=== PATIENT | female | born 1930 | race Hispanic/Latino ===

== ENCOUNTER 2017-01-28 14:22 | Inpatient (IN) | payer MEDICARE, OTHER ==
[2017-01-28] MEDS ORDERED: Sodium Chloride 0.9% 500 ML IV STA ×3 (14:59→17:41)
--- NOTE | 2017-01-28 15:10 | ED PDOC ---
HPI: Altered Mental Status Chief Complaint (Provider): Altered Mental Status History Per: Patient, Family (2 sons (one lives with her)) History/Exam Limitations: Other Onset/Duration Of Symptoms: Hrs Onset Of Symptoms: <4.5 Hours Current Symptoms Are (Timing): Better Description Of Symptoms: Not At Baseline Usual Baseline: Alert Oriented, Ambulatory Exacerbating Factor(s): Unknown Use Of Anticoag/Antiplatlets: Yes Decreased Ability To: Walk Severity: Moderate Additional History Per: Family Associated Symptoms: Confused Additional Complaint(s): Halie Alejandra is a pleasant 86 yo lady with PMHx of [place], DM, dyslipidemia presented to the ED via ambulance service. Her 2 sons were present to give detailed information. They notice around noon, she was shaking similar to having chills. 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 Calderón who instructed them to seek emergent medical attention. Per son: leading up to the event, she seemed to be "normal", she had breakfast, was ambulatory, no recent illness or travel to foreign countries. They shared that a few years ago, she had similar symptoms and found to be hypoglycemic. She was more responsive and able to deny: N/V/CP/JOLLEY/SOB. PCP: Dr. Bahman Brunner. Hvac Manager: Dr. 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 PSurgHx: none FamHx: Mother DM; Father: IDDM; esophageal CA; [place]; Son: prostate CA SocialHx: Lives with son; Denies: smoking, etoh, illicit drugs NKDA Meds: Levothyroxine, Amiodarone, Clopidogrel, Isosorbide monoNitrate, metoprolol , atorvastatin, pioglitazone <Hiren Pineda - Last Filed: 01/28/17 18:28> <Silvia Arenas - Last Filed: 02/01/17 15:10> Time Seen by Provider: 01/28/17 14:34 Chief Complaint (Nursing): Weakness/Neurological Deficit Supervising Attending Note - Supervising Attending Note The Documented history was done by the: Physician Calender Wind Up Helper, Attending Physician The documented physical exam was done by the: Physician Calender Wind Up Helper, Attending Physician - Attestation: I have personally seen and examined this patient.: Yes I have fully participated in the care of the patient.: Yes I have reviewed all pertinent clinical information: Yes <Silvia Arenas - Last Filed: 02/01/17 15:10> Past Medical History Vital Signs: Last Vital Signs Temp 104.2 F H 01/28/17 14:25 Pulse 80 01/28/17 14:25 Resp 16 01/28/17 14:25 BP 147/64 01/28/17 14:45 Pulse Ox 98 01/28/17 14:25 - Medical History PMH: Atrial Fibrillation, CAD, HTN, Hypercholesterolemia Denies: Chronic Kidney Disease - Family History Family History: States: Unknown Family Hx <Hiren Pineda - Last Filed: 01/28/17 18:28> Vital Signs: Last Vital Signs Temp 98.5 F 02/01/17 12:44 Pulse 55 L 02/01/17 12:44 Resp 18 02/01/17 12:44 BP 138/70 02/01/17 12:44 Pulse Ox 95 02/01/17 12:44 <Silvia Arenas - Last Filed: 02/01/17 15:10> - Home Medications Home Medications: Ambulatory Orders Medication Instructions Recorded Atorvastatin [Lipitor] 40 mg PO DAILY 02/09/16 Clopidogrel [Plavix] 75 mg PO DAILY 02/09/16 Isosorbide Mononitrate ER [Imdur 30 mg PO DAILY 02/09/16 ER] Metoprolol Tartrate [Lopressor] 12.5 mg PO Q12H 02/09/16 Pioglitazone [Actos] 15 mg PO DAILY 02/09/16 Amiodarone [Cordarone] 100 mg PO Q48H 01/28/17 Levothyroxine [Synthroid] 25 mcg PO DAILY 01/28/17 - Allergies Allergies/Adverse Reactions: Allergies Allergy/AdvReac Type Severity Reaction Status Date / Time No Known Allergies Allergy Verified 02/09/16 09:21 Review of Systems ROS Statement: Except As Marked, All Systems Reviewed And Found Negative Constitutional: Positive for: Chills Cardiovascular: Negative for: Chest Pain Respiratory: Negative for: Shortness of Breath Gastrointestinal: Negative for: Nausea, Vomiting, Abdominal Pain Neurological: Negative for: Headache <Hiren Pineda - Last Filed: 01/28/17 18:28> Physical Exam - Reviewed Vital Signs Reviewed: Yes - Physical Exam Appears: Positive for: No Acute Distress Skin: Positive for: Warm, Dry Eye Exam: Positive for: EOMI Cardiovascular/Chest: Positive for: Murmur (Systolic) Respiratory: Positive for: Normal Breath Sounds. Negative for: Wheezing Gastrointestinal/Abdominal: Positive for: Bowel Sounds, Soft. Negative for: Tenderness Neurologic/Psych: Positive for: Alert (Mini Mental Status Exam: 18/30 Mild Cognitive impairment. ) <Vasiliy Pinedaang Rubén Devyn Filed: 01/28/17 18:28> - Physical Exam Head Exam: Positive for: ATRAUMATIC, NORMOCEPHALIC ENT: Positive for: Other (tacky mucus membranes) Neck: Positive for: Painless ROM, Supple Respiratory: Negative for: Respiratory Distress Back: Positive for: Normal Inspection. Negative for: Decreased ROM Lymphatic: Negative for: Adenopathy Neurologic/Psych: Negative for: Motor/Sensory Deficits <Silvia Arenas Filed: 02/01/17 15:10> - Laboratory Results Result Diagrams: 01/28/17 15:38 01/28/17 15:38 - ECG O2 Sat by Pulse Oximetry: 98 <Vasiliy Pinedaang Rubén Devyn Filed: 01/28/17 18:28> - Laboratory Results Result Diagrams: 01/30/17 08:00 01/30/17 08:00 <Silvia Arenas Filed: 02/01/17 15:10> Disposition - Patient ED Disposition Is Patient to be Admitted: Yes Discussed With : Silvia Arenas Comment: Consulted Dr. Brunner (PCP) who recommeneded consulting Dr. Calderón ( Cardiology) and Dr. Augustin (ID); Agreed for emperic abx and tamiflu;. Admit to floor with repeat in culture, VBG and vitals - Disposition Disposition Time: 18:25 <Hiren Pineda Filed: 01/28/17 18:28> - Pt Status Changed To: Hospital Disposition Of: Inpatient - Admit Certification Admit to Inpatient:: After my assessment, the patient will require hospitalization for at least two midnights. This is because of the severity of symptoms shown, intensity of services needed, and/or the medical risk in this patient being treated as an outpatient. - POA Present On Arrival: None <Silvia Arenas - Last Filed: 02/01/17 15:10> - Clinical Impression Clinical Impression: Febrile, Acute weakness - Disposition Condition: FAIR
[2017-01-28 15:43] LABS: BASO % 0.3 % (0.0-2.0); EOS % 0.3 % (0.0-4.0); HEMATOCRIT 35.7 % (34.0-47.0); LYMPH # 0.2 K/uL (1.0-4.3); LYMPH % 2.7 % (20.0-40.0); MEAN CELL VOLUME 89.6 fl (81.0-99.0); MEAN CORPUSCULAR HEMOGLOBIN 29.8 pg (27.0-31.0); MEAN CORPUSCULAR HGB CONC 33.3 g/dL (33.0-37.0); MEAN PLATELET VOLUME 9.9 fl (7.2-11.7); MONO % 0.6 % (0.0-10.0); NEUT # 7.2 K/uL (1.8-7.0); NEUT % 96.1 % (50.0-75.0); PLATELET COUNT 154 K/uL (130-400); RED CELL DISTRIBUTION WIDTH 14.7 % (11.5-14.5); WHITE BLOOD COUNT 7.5 K/uL (4.8-10.8)
[2017-01-28 15:52] LABS: ALB/GLOB RATIO 1.1 (1.0-2.1); BILIRUBIN,TOTAL 0.7 mg/dl (0.2-1.3); CALCIUM 8.5 mg/dL (8.4-10.2); MAGNESIUM 2.2 MG/DL (1.6-2.3); PHOSPHOROUS 3.2 mg/dl (2.5-4.5); TOTAL PROTEIN 7.4 G/DL (6.3-8.2)
[2017-01-28 15:53] LABS: PARTIAL THROMBOPLASTIN TIME 32.1 Seconds (25.6-37.1)
[2017-01-28 15:55] LABS: VENOUS BLOOD GAS PCO2 47 mmHg (40-60); VENOUS BLOOD PH 7.38 (7.32-7.43)
--- NOTE | 2017-01-28 16:49 | RAD ---
HISTORY: Sepsis Patient COMPARISON: Chest radiograph 02/09/2016. FINDINGS: LUNGS: No definite alveolitis is appreciate this time however reticular markings appear increased bilaterally which could reflect an element of early CHF. Clinically correlate further. PLEURA: No significant pleural effusion identified, no pneumothorax apparent. CARDIOVASCULAR: Cardiomegaly is again evident though much of this could be a function of frontal technique. Clinically correlate. Pulmonary vascular pattern is borderline increased. OSSEOUS STRUCTURES: No significant abnormalities. VISUALIZED UPPER ABDOMEN: Normal. OTHER FINDINGS: None. IMPRESSION: Findings suspicious for mild CHF. No alveolitis pleural effusion or pneumothorax bilaterally. Cardiomegaly is stable. Clinically correlate further.
[2017-01-28 17:35] LABS: EOSINOPHIL 1 % (0-7); NEUTROPHIL 85 % (42-75); TOTAL CELLS COUNTED 100
[2017-01-28 18:11] LABS: RBC URINE 8 /hpf (0-3); URINE BACTERIA RARE (<OCC); URINE BILIRUBIN NEGATIVE (NEGATIVE); URINE BLOOD SMALL (NEGATIVE); URINE COLOR YELLOW (YELLOW); URINE GLUCOSE (UA) NEG (Normal); URINE KETONE NEGATIVE (NEGATIVE); URINE LEUKOCYTE ESTERASE NEG Leu/uL (Negative); URINE PROTEIN NEGATIVE (NEGATIVE); URINE UROBILINOGEN 0.2-1.0 mg/dL (0.2-1.0); WBC URINE < 1 /hpf (0-5)
[2017-01-28] MEDS ORDERED: Vancomycin 1 g Inj ONE (18:36)
[2017-01-28 19:05] LABS: VENOUS BLOOD GAS BASE EXCESS -1.4 mmol/L (0.0-2.0); VENOUS BLOOD GAS PCO2 36 mmHg (40-60); VENOUS BLOOD PH 7.41 (7.32-7.43)
--- NOTE | 2017-01-28 20:44 | CP.PCM.PN ---
Subjective - Date & Time of Evaluation Date of Evaluation: 01/28/17 Time of Evaluation: 22:22 - Subjective Subjective: 86 yo presented to the ER with chills and temp 104 Hx of NIDDM and Heart dx A fib Objective - Vital Signs/Intake and Output Vital Signs (last 24 hours): Temp Pulse Resp BP Pulse Ox 100.6 F H 83 18 96/58 L 98 01/28/17 16:49 01/28/17 18:01 01/28/17 18:01 01/28/17 18:01 01/28/17 18:28 - Labs Labs: 01/28/17 15:38 01/28/17 15:38 PT 14.6 Seconds (9.8-13.1) H 01/28/17 15:38 INR 1.3 (0.9-1.2) H 01/28/17 15:38 APTT 32.1 Seconds (25.6-37.1) 01/28/17 15:38 - Respiratory Exam Respiratory Exam: NORMAL BREATHING PATTERN - Cardiovascular Exam Cardiovascular Exam: REGULAR RHYTHM - GI/Abdominal Exam GI & Abdominal Exam: Normal Bowel Sounds Assessment and Plan - Assessment and Plan (Free Text) Assessment: Sepsis?? ABX Tamiflu Cultures ID Afib with controlled rate Hx CAD Cardiology NIDDM monitor BS
[2017-01-29] MEDS ORDERED: Sodium Chloride 0.45% 1,000 ML IV SCH (00:15)
[2017-01-29 05:56] LABS: BASO % 0.2 % (0.0-2.0); EOS % 0.1 % (0.0-4.0); HEMATOCRIT 29.5 % (34.0-47.0); LYMPH # 0.9 K/uL (1.0-4.3); LYMPH % 6.6 % (20.0-40.0); MEAN CELL VOLUME 89.7 fl (81.0-99.0); MEAN CORPUSCULAR HEMOGLOBIN 30.5 pg (27.0-31.0); MEAN PLATELET VOLUME 10.5 fl (7.2-11.7); MONO # 0.7 K/uL (0.0-0.8); MONO % 5.1 % (0.0-10.0); NEUT # 12.1 K/uL (1.8-7.0); RED CELL DISTRIBUTION WIDTH 14.6 % (11.5-14.5)
[2017-01-29 06:08] LABS: ALB/GLOB RATIO 0.9 (1.0-2.1); BILIRUBIN,TOTAL 0.4 mg/dl (0.2-1.3); CALCIUM 8.1 mg/dL (8.4-10.2); POTASSIUM 4.4 MMOL/L (3.6-5.0); TOTAL PROTEIN 6.1 G/DL (6.3-8.2)
[2017-01-29 06:17] LABS: WHITE BLOOD COUNT 13.8 K/uL (4.8-10.8)
[2017-01-29] MEDS: Levothyroxine 25 MCG TAB PO SCH (07:03)
--- NOTE | 2017-01-29 11:07 | CP.PCM.CON ---
History of Present Illness - History of Present Illness History of Present Illness: 86 yo lady with PMHx of [place], DM, dyslipidemia presented to the ED via ambulance service. around noon, she was shaking similar to having chills. 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 PSurgHx: none FamHx: Mother DM; Father: IDDM; esophageal CA; [place]; Son: prostate CA SocialHx: Lives with son; Denies: smoking, etoh, illicit drugs NKDA Meds: Levothyroxine, Amiodarone, Clopidogrel, Isosorbide monoNitrate, metoprolol , atorvastatin, pioglitazone - Medical History PMH: Atrial Fibrillation, CAD, HTN, Hypercholesterolemia Denies: Chronic Kidney Disease Review of Systems - Constitutional Constitutional: As Per HPI - EENT Eyes: absent: As Per HPI, Blind Spots, Blurred Vision, Change in Vision, Decreased Night Vision, Diplopia, Discharge, Dry Eye, Exophthalmos, Floaters, Irritation, Itchy Eyes, Loss of Peripheral Vision, Pain, Photophobia, Requires Corrective Lenses, Sees Flashes, Spots in Vision, Tunnel Vision, Other Visual Disturbances, Loss of Vision, Other Ears: absent: As Per HPI, Decreased Hearing, Ear Discharge, Ear Pain, Tinnitus, Abnormal Hearing, Disequilibrium, Dizziness, Other Nose/Mouth/Throat: absent: As Per HPI, Epistaxis, Nasal Congestion, Nasal Discharge, Nasal Obstruction, Nasal Trauma, Nose Pain, Post Nasal Drip, Sinus Pain, Sinus Pressure, Bleeding Gums, Change in Voice, Dental Pain, Dry Mouth, Dysphagia, Halitosis, Hoarsness, Lip Swelling, Mouth Lesions, Mouth Pain, Odynophagia, Sore Throat, Throat Swelling, Tongue Swelling, Facial Pain, Neck Pain, Neck Mass, Other - Cardiovascular Cardiovascular: absent: As Per HPI, Acrocyanosis, Chest Pain, Chest Pain at Rest , Chest Pain with Activity, Claudication, Diaphoresis, Dyspnea, Dyspnea on Exertion, Edema, Irregular Heart Rhythm, Pain Radiating to Arm/Neck/Jaw, Leg Edema, Leg Ulcers, Lightheadedness, Orthopnea, Palpitations, Paroxysmal Nocturnal Dyspnea, Pedal Edema, Radiating Pain, Rapid Heart Rate, Slow Heart Rate, Syncope, Other - Respiratory Respiratory: absent: As Per HPI, Cough, Dyspnea, Hemoptysis, Dyspnea on Exertion , Wheezing, Snoring, Stridor, Pain on Inspiration, Chest Congestion, Excessive Mucous Production, Change in Mucous Color, Pain with Coughing, Other - Gastrointestinal Gastrointestinal: absent: As Per HPI, Abdominal Pain, Belching, Bloating, Change in Bowel Habits, Change in Stool Character, Coffee Ground Emesis, Constipation, Cramping, Diarrhea, Dyspepsia, Dysphagia, Early Satiety, Excessive Flatus, Fecal Incontinence, Heartburn, Hematemesis, Hematochezia, Loose Stools, Melena, Nausea, Odynophagia, Temesmus, Vomiting, Other - Genitourinary Genitourinary: absent: As Per HPI, Change in Urinary Stream, Difficulty Urinating, Dysuria, Flank Pain, Hematuria, Pyuria, Nocturia, Urinary Incontinence, Urinary Frequency, Urinary Hesitance, Urinary Urgency, Voiding Freq/Small Amts, Freq UTI, Hx Renal/Bladder Calculi, Hx /Renal Surgery, Bladder Distension, Other - Reproductive: Female Reproductive:Female: absent: As Per HPI, Amenorrhea, Amenorrhea/ Control, Currently Menstual, Cycle <21 Days, Cycle >35 Days, Cycle Variable, Menses 1-7 Days, Menses >/= 8 Days, Menses Variable, Cycle > 4 Weeks Between, No Menses for 6 Months, Heavy Menses, Light Menses, Normal Menses, Spotting Between Cycles , S/P Hysterectomy, Menopausal, Post Menopausal, Premenarche, Abnormal Vaginal Bleeding, Dysmenorrhea, Dyspareunia, Genital Lesions, Genital Pruritis, Pelvic Pain, Prolapse Symptoms, Sexual Dysfunction, Vaginal Discharge, Vaginal Dryness , Vaginal Odor, Vaginal Pruritis, Other - Menstruation Menstruation: absent: As Per HPI, Amenorrhea, Amenorrhea/ Control, Currently Menstual, Cycle <21 Days, Cycle >35 Days, Cycle Variable, Menses 1-7 Days, Menses >/= 8 Days, Menses Variable, Cycle > 4 Weeks Between, No Menses for 6 Months, Heavy Menses, Light Menses, Normal Menses, Spotting Between Cycles , S/P Hysterectomy, Menopausal, Post Menopausal, Premenarche, Abnormal Vaginal Bleeding, Dysmenorrhea, Other - Musculoskeletal Musculoskeletal: As Per HPI - Integumentary Integumentary: absent: As Per HPI, Acne, Alopecia, Bleeding Lesions, Change in Hair, Change in Nails, Change in Pigmentation, Changing Lesions, Dry Skin, Erythema, Furuncle, Hirsutism, Lesions, New Lesions, Non-Healing Lesions, Photosensitivity, Pruritus, Rash, Skin Pain, Skin Ulcer, Sores, Striae, Swelling , Unusual Bruising, Wounds, Jaundice, Other - Neurological Neurological: absent: As Per HPI, Abnormal Gait, Abnormal Hearing, Abnormal Movements, Abnormal Speech, Behavioral Changes, Burning Sensations, Confusion, Convulsions, Disequilibrium, Dizziness, Numbness, Focal Weakness, Frequent Falls , Headaches, Lack of Coordination, Loss of Vision, Memory Loss, Paresthesias, Radicular Pain, Restless Legs, Sensory Deficit, Syncope, Tingling, Tremor, Vertigo, Weakness, Other Visual Disturbances, Other - Psychiatric Psychiatric: absent: As Per HPI, Abnormal Sleep Pattern, Anhedonia, Anxiety, Auditory Hallucinations, Behavioral Changes, Change in Appetite, Change in Libido, Confusion, Depression, Difficulty Concentrating, Hallucinations, Homicidal Ideation, Hopelessness, Irritability, Memory Loss, Mood Swings, Panic Attacks, Paranoia, Suicidal Ideation, Visual Hallucinations, Tactile Hallucinations, Other - Endocrine Endocrine: absent: As Per HPI, Change in Body Appearance, Change in Libido, Cold Intolorance, Deepening of Voice, Excessive Sweating, Fatigue, Flushing, Heat Intolorance, Increase in Ring/Shoe/Hat Size, Palpitations, Polydipsia, Polyphagia, Polyuria, Other - Hematologic/Lymphatic Hematologic: absent: As Per HPI, Easy Bleeding, Easy Bruising, Lymphadenopathy, Other Past Patient History - Infectious Disease Hx of Infectious Diseases: None - Past Medical History & Family History Past Medical History?: Yes - Past Social History Smoking Status: Never Smoked - CARDIAC Hx Atrial Fibrillation: Yes Hx Hypercholesterolemia: Yes Hx Hypertension: Yes - PULMONARY Hx Respiratory Disorders: No - NEUROLOGICAL Hx Neurological Disorder: No - HEENT Hx HEENT Problems: No - RENAL Hx Chronic Kidney Disease: No - ENDOCRINE/METABOLIC Hx Endocrine Disorders: Yes Hx Diabetes Mellitus Type 2: Yes - HEMATOLOGICAL/ONCOLOGICAL Hx Blood Disorders: No - INTEGUMENTARY Hx Dermatological Problems: No - MUSCULOSKELETAL/RHEUMATOLOGICAL Hx Musculoskeletal Disorders: No Hx Falls: No - GASTROINTESTINAL Hx Gastrointestinal Disorders: No - GENITOURINARY/GYNECOLOGICAL Hx Genitourinary Disorders: No - PSYCHIATRIC Hx Psychophysiologic Disorder: No Hx Substance Use: No - SURGICAL HISTORY Hx Surgeries: No - ANESTHESIA Hx Anesthesia: No Meds Allergies/Adverse Reactions: Allergies Allergy/AdvReac Type Severity Reaction Status Date / Time No Known Allergies Allergy Verified 02/09/16 09:21 - Medications Medications: Current Medications Amiodarone HCl (Cordarone) 100 mg PO QOTHERDAY [facility] Last Admin: 01/29/17 09:50 Dose: 100 mg Atorvastatin Calcium (Lipitor) 40 mg PO DAILY [facility] Last Admin: 01/29/17 09:49 Dose: 40 mg Clopidogrel Bisulfate (Plavix) 75 mg PO DAILY [facility] Last Admin: 01/29/17 09:50 Dose: 75 mg Sodium Chloride (Sodium Chloride 0.45%) 1,000 mls @ 40 mls/hr IV .Q24H [facility] Stop: 01/30/17 00:06 Last Admin: 01/29/17 00:30 Dose: 40 mls/hr Vancomycin HCl 1 gm/ Sodium (Chloride) 250 mls @ 166.667 mls/hr IVPB DAILY [facility] PRN Reason: Protocol Ceftriaxone Sodium 1 gm/ (Sodium Chloride) 100 mls @ 100 mls/hr IVPB DAILY [facility] PRN Reason: Protocol Isosorbide Mononitrate (Imdur Er) 30 mg PO DAILY [facility] Last Admin: 01/29/17 09:49 Dose: 30 mg Levothyroxine Sodium (Synthroid) 25 mcg PO DAILY@0630 [facility] Last Admin: 01/29/17 07:03 Dose: 25 mcg Metoprolol Tartrate (Lopressor) 12.5 mg PO Q12 [facility] Last Admin: 01/29/17 09:50 Dose: 12.5 mg Oseltamivir Phosphate (Tamiflu Cap) 75 mg PO BID [facility] PRN Reason: Protocol Pioglitazone HCl (Actos) 15 mg PO DAILY [facility] Last Admin: 01/29/17 09:55 Dose: 15 mg Physical Exam - Constitutional Appears: Non-toxic, Chronically Ill - Head Exam Head Exam: NORMOCEPHALIC - Eye Exam Eye Exam: PERRL. absent: Scleral icterus - ENT Exam ENT Exam: Mucous Membranes Dry, Normal External Ear Exam - Neck Exam Neck exam: Negative for: Lymphadenopathy - Respiratory Exam Respiratory Exam: Decreased Breath Sounds, Rhonchi - Cardiovascular Exam Cardiovascular Exam: REGULAR RHYTHM, +S1, +S2 - GI/Abdominal Exam GI & Abdominal Exam: Diminished Bowel Sounds, Soft. absent: Tenderness - Rectal Exam Rectal Exam: Deferred - Exam Exam: NORMAL INSPECTION - Extremities Exam Extremities exam: Positive for: pedal pulses present. Negative for: calf tenderness, pedal edema, tenderness - Back Exam Back exam: absent: CVA tenderness (L), CVA tenderness (R) - Neurological Exam Neurological exam: Alert, CN II-XII Intact, Oriented x3, Reflexes Normal - Psychiatric Exam Psychiatric exam: Normal Mood - Skin Skin Exam: Dry Results - Vital Signs Recent Vital Signs: Last Vital Signs Temp 97.7 F 01/29/17 08:00 Pulse 60 01/29/17 09:50 Resp 18 01/29/17 08:00 BP 100/58 L 01/29/17 09:50 Pulse Ox 96 01/29/17 08:00 - Labs Result Diagrams: 01/29/17 04:15 01/29/17 04:15 Labs: Laboratory Results - last 24 hr 01/28/17 01/28/17 01/28/17 14:51 15:38 15:38 WBC 7.5 D RBC 3.99 Hgb 11.9 L Hct 35.7 MCV 89.6 MCH 29.8 MCHC 33.3 RDW 14.7 H Plt Count 154 MPV 9.9 Neut % (Auto) 96.1 H Lymph % (Auto) 2.7 L Harding % (Auto) 0.6 Eos % (Auto) 0.3 Baso % (Auto) 0.3 Neut # 7.2 H Lymph # 0.2 L Harding # 0.0 Eos # 0.0 Baso # 0.0 Neutrophils % (Manual) 85 H Band Neutrophils % 7 H Lymphocytes % (Manual) 7 L Monocytes % (Manual) TEST NOT PERFORMED Eosinophils % (Manual) 1 Platelet Estimate Normal Anisocytosis (manual) Slight Ovalocytes Slight PT INR APTT pO2 VBG pH VBG pCO2 VBG HCO3 VBG Total CO2 VBG O2 Sat (Calc) VBG Base Excess VBG Potassium Glucose Lactate FiO2 Sodium 141 Potassium 5.0 Chloride 106 Carbon Dioxide 23 Anion Gap 16 BUN 35 H Creatinine 1.3 H Est GFR ( Amer) 47 Est GFR (Non-Af Amer) 39 POC Glucose (mg/dL) 97 Random Glucose 114 H Calcium 8.5 Phosphorus 3.2 Magnesium 2.2 Total Bilirubin 0.7 AST 36 ALT 32 Alkaline Phosphatase 163 H CK-MB (Mass) Total Protein 7.4 Albumin 3.8 Globulin 3.6 Albumin/Globulin Ratio 1.1 Venous Blood Potassium Urine Color Urine Clarity Urine pH Ur Specific [place]ott Urine Protein Urine Glucose (UA) Urine Ketones Urine Blood Urine Nitrate Urine Bilirubin Urine Urobilinogen Ur Leukocyte Esterase Urine RBC (Auto) Urine Microscopic WBC Ur Squamous Epith Cells Urine Bacteria C. difficile Ag & Toxin Influenza Typ A,B (EIA) 01/28/17 01/28/17 01/28/17 15:38 15:38 15:50 WBC RBC Hgb Hct MCV MCH MCHC RDW Plt Count MPV Neut % (Auto) Lymph % (Auto) Harding % (Auto) Eos % (Auto) Baso % (Auto) Neut # Lymph # Harding # Eos # Baso # Neutrophils % (Manual) Band Neutrophils % Lymphocytes % (Manual) Monocytes % (Manual) Eosinophils % (Manual) Platelet Estimate Anisocytosis (manual) Ovalocytes PT 14.6 H INR 1.3 H APTT 32.1 pO2 17 L VBG pH 7.38 VBG pCO2 47 VBG HCO3 24.5 VBG Total CO2 29.2 H VBG O2 Sat (Calc) 29.7 L VBG Base Excess 2.0 VBG Potassium 5.2 Glucose 121 H Lactate 1.9 FiO2 21.0 Sodium 138.0 Potassium Chloride 106.0 Carbon Dioxide Anion Gap BUN Creatinine Est GFR ( Amer) Est GFR (Non-Af Amer) POC Glucose (mg/dL) Random Glucose Calcium Phosphorus Magnesium Total Bilirubin AST ALT Alkaline Phosphatase CK-MB (Mass) Total Protein Albumin Globulin Albumin/Globulin Ratio Venous Blood Potassium 5.2 Urine Color Urine Clarity Urine pH Ur Specific [place] Urine Protein Urine Glucose (UA) Urine Ketones Urine Blood Urine Nitrate Urine Bilirubin Urine Urobilinogen Ur Leukocyte Esterase Urine RBC (Auto) Urine Microscopic WBC Ur Squamous Epith Cells Urine Bacteria C. difficile Ag & Toxin Influenza Typ A,B (EIA) Negative for flu a/b 01/28/17 01/28/17 01/28/17 17:33 17:57 18:55 WBC RBC Hgb Hct MCV MCH MCHC RDW Plt Count MPV Neut % (Auto) Lymph % (Auto) Harding % (Auto) Eos % (Auto) Baso % (Auto) Neut # Lymph # Harding # Eos # Baso # Neutrophils % (Manual) Band Neutrophils % Lymphocytes % (Manual) Monocytes % (Manual) Eosinophils % (Manual) Platelet Estimate Anisocytosis (manual) Ovalocytes PT INR APTT pO2 30 VBG pH 7.41 VBG pCO2 36 L VBG HCO3 22.8 VBG Total CO2 23.9 VBG O2 Sat (Calc) 65.9 H VBG Base Excess -1.4 L VBG Potassium 4.1 Glucose 170 H Lactate 1.6 FiO2 21.0 Sodium 137.0 Potassium Chloride 105.0 Carbon Dioxide Anion Gap BUN Creatinine Est GFR ( Amer) Est GFR (Non-Af Amer) POC Glucose (mg/dL) Random Glucose Calcium Phosphorus Magnesium Total Bilirubin AST ALT Alkaline Phosphatase CK-MB (Mass) Total Protein Albumin Globulin Albumin/Globulin Ratio Venous Blood Potassium 4.1 Urine Color Yellow Urine Clarity Slighty-cloudy Urine pH 5.0 Ur Specific [place]ott 1.012 Urine Protein Negative Urine Glucose (UA) Neg Urine Ketones Negative Urine Blood Small Urine Nitrate Negative Urine Bilirubin Negative Urine Urobilinogen 0.2-1.0 Ur Leukocyte Esterase Neg Urine RBC (Auto) 8 H Urine Microscopic WBC < 1 Ur Squamous Epith Cells < 1 Urine Bacteria Rare C. difficile Ag & Toxin Negative Influenza Typ A,B (EIA) 01/29/17 01/29/17 04:15 04:15 WBC 13.8 H D RBC 3.29 L Hgb 10.0 L Hct 29.5 L MCV 89.7 MCH 30.5 MCHC 34.0 RDW 14.6 H Plt Count 129 L D MPV 10.5 Neut % (Auto) 88.0 H Lymph % (Auto) 6.6 L Harding % (Auto) 5.1 Eos % (Auto) 0.1 Baso % (Auto) 0.2 Neut # 12.1 H Lymph # 0.9 L Harding # 0.7 Eos # 0.0 Baso # 0.0 Neutrophils % (Manual) Band Neutrophils % Lymphocytes % (Manual) Monocytes % (Manual) Eosinophils % (Manual) Platelet Estimate Anisocytosis (manual) Ovalocytes PT INR APTT pO2 VBG pH VBG pCO2 VBG HCO3 VBG Total CO2 VBG O2 Sat (Calc) VBG Base Excess VBG Potassium Glucose Lactate FiO2 Sodium 140 Potassium 4.4 Chloride 108 H Carbon Dioxide 23 Anion Gap 13 BUN 35 H Creatinine 1.3 H Est GFR ( Amer) 47 Est GFR (Non-Af Amer) 39 POC Glucose (mg/dL) Random Glucose 114 H Calcium 8.1 L Phosphorus Magnesium Total Bilirubin 0.4 AST 31 ALT 30 Alkaline Phosphatase 115 CK-MB (Mass) 8.78 H Total Protein 6.1 L Albumin 2.9 L D Globulin 3.1 Albumin/Globulin Ratio 0.9 L Venous Blood Potassium Urine Color Urine Clarity Urine pH Ur Specific [place] Urine Protein Urine Glucose (UA) Urine Ketones Urine Blood Urine Nitrate Urine Bilirubin Urine Urobilinogen Ur Leukocyte Esterase Urine RBC (Auto) Urine Microscopic WBC Ur Squamous Epith Cells Urine Bacteria C. difficile Ag & Toxin Influenza Typ A,B (EIA) Assessment & Plan (1) Leukocytosis (leucocytosis) Status: Acute (2) Febrile Status: Acute (3) Atrial fibrillation with rapid ventricular response Status: Acute (4) Chest pain Status: Acute - Assessment and Plan (Free Text) Assessment: cont iv antibiotics await cultures could be viral agree with Tamiflu
--- NOTE | 2017-01-29 15:03 | CARD ---
APPROVED REPORT EXAM: Two-dimensional and M-mode echocardiogram with Doppler and color Doppler. Other Information Quality : GoodRhythm : NSR INDICATION Chest Pain 2D DIMENSIONS IVSd0.99 (0.7-1.1cm)LVDd4.20 (3.9-5.9cm) LVOT Diameter1.56 (1.8-2.4cm)PWd1.10 (0.7-1.1cm) IVSs1.37 (0.8-1.2cm)LVDs2.70 (2.5-4.0cm) FS (%) 35.7 %PWs1.26 (0.8-1.2cm) LVEF (%)50.0 (>50%) M-Mode DIMENSIONS Left Atrium (MM)4.59 (2.5-4.0cm)IVSd0.82 (0.7-1.1cm) Aortic Root2.62 (2.2-3.7cm)LVDd4.88 (4.0-5.6cm) Aortic Cusp Exc.1.53 (1.5-2.0cm)PWd0.85 (0.7-1.1cm) IVSs1.47 cmFS (%) 43 % LVDs2.76 (2.0-3.8cm)PWs1.56 cm Mitral Valve MV E Iqtukrdj023.4cm/sMV DECEL [id number] A Ixxwgfhg09.4cm/s MV LBL82isF/A ratio1.6MVA (PHT)3.52cm2 TDI Lateral E' Peak V11.49cm/sMedial E' Peak V10.51cm/sE/Lateral E'12.7 E/Medial E'13.8 Pulmonary Valve PV Peak Repqglfv917.4cm/s Tricuspid Valve TR Peak Egicvuko510oa/sRAP NDTJHYUX65guAgLN Peak Gr.42mmHg [id number] LEFT VENTRICLE The left ventricle is normal size. There is mild concentric left ventricular hypertrophy. Left ventricle systolic function is borderline. There is normal LV segmental wall motion. Transmitral Doppler flow pattern is Grade II-pseudonormal filling dynamics. RIGHT VENTRICLE The right ventricle is normal size. There is normal right ventricular wall thickness. The right ventricular systolic function is normal. ATRIA The left atrium is mildly dilated. The right atrium is mildly dilated. AORTIC VALVE The aortic valve is not well visualized. There is mild aortic regurgitation. There is no aortic valvular stenosis. MITRAL VALVE The mitral valve is mildly thickened. There is no mitral valve stenosis. Mitral regurgitation is mild. TRICUSPID VALVE The tricuspid valve is normal in structure. There is moderate tricuspid regurgitation. There is moderate pulmonary hypertension. PULMONIC VALVE The pulmonary valve is normal in structure. There is no pulmonic valvular regurgitation. GREAT VESSELS The aortic root is normal in size. The IVC is normal in size and collapses >50% with inspiration. PERICARDIAL EFFUSION The pericardium appears normal. <Conclusion> The left ventricle is normal size. There is mild concentric left ventricular hypertrophy. Left ventricle systolic function is borderline. There is normal LV segmental wall motion. Transmitral Doppler flow pattern is Grade II-pseudonormal filling dynamics. There is mild aortic regurgitation. Mitral regurgitation is mild. There is moderate tricuspid regurgitation. There is moderate pulmonary hypertension.
--- NOTE | 2017-01-29 15:09 | CARD ---
APPROVED REPORT EKG Measurement Heart [id number] <Conclusion> Normal sinus rhythm with sinus arrhythmia Low voltage QRS Borderline ECG
--- NOTE | 2017-01-29 15:53 | CARD ---
APPROVED REPORT EKG Measurement Heart [id number] <Conclusion> Normal sinus rhythm Septal infarct, age undetermined Consider lateral ischemia Abnormal ECG
[2017-01-29] MEDS ORDERED: Influenza Vaccine 18yr & older 0.5 ML/45 MCG SYR IM ONE ×2 (17:35→21:00)
[2017-01-29] MEDS ORDERED: Pneumococcal 23-Valent Vaccine IM ONE ×2 (17:35→21:00)
--- NOTE | 2017-01-29 19:53 | CP.PCM.HP ---
History of Present Illness - History of Present Illness History of Present Illness: 86 yo admitted with fever 104 and chills Present on Admission - Present on Admission Any Indicators Present on Admission: No Past Patient History - Infectious Disease Hx of Infectious Diseases: None - Past Medical History & Family History Past Medical History?: Yes - Past Social History Smoking Status: Never Smoked - CARDIAC Hx Atrial Fibrillation: Yes Hx Hypercholesterolemia: Yes Hx Hypertension: Yes - PULMONARY Hx Respiratory Disorders: No - NEUROLOGICAL Hx Neurological Disorder: No - HEENT Hx HEENT Problems: No - RENAL Hx Chronic Kidney Disease: No - ENDOCRINE/METABOLIC Hx Endocrine Disorders: Yes Hx Diabetes Mellitus Type 2: Yes - HEMATOLOGICAL/ONCOLOGICAL Hx Blood Disorders: No - INTEGUMENTARY Hx Dermatological Problems: No - MUSCULOSKELETAL/RHEUMATOLOGICAL Hx Musculoskeletal Disorders: No Hx Falls: No - GASTROINTESTINAL Hx Gastrointestinal Disorders: No - GENITOURINARY/GYNECOLOGICAL Hx Genitourinary Disorders: No - PSYCHIATRIC Hx Psychophysiologic Disorder: No Hx Substance Use: No - SURGICAL HISTORY Hx Surgeries: No - ANESTHESIA Hx Anesthesia: No Meds Allergies/Adverse Reactions: Allergies Allergy/AdvReac Type Severity Reaction Status Date / Time No Known Allergies Allergy Verified 02/09/16 09:21 Physical Exam - Respiratory Exam Respiratory Exam: NORMAL BREATHING PATTERN - Cardiovascular Exam Cardiovascular Exam: REGULAR RHYTHM - GI/Abdominal Exam GI & Abdominal Exam: Normal Bowel Sounds Results - Vital Signs Recent Vital Signs: Last Vital Signs Temp 98.1 F 01/29/17 19:39 Pulse 71 01/29/17 19:39 Resp 18 01/29/17 19:39 BP 97/60 L 01/29/17 19:39 Pulse Ox 95 01/29/17 19:39 - Labs Result Diagrams: 01/29/17 04:15 01/29/17 04:15 Labs: Laboratory Results - last 24 hr 01/28/17 01/28/17 01/29/17 14:51 17:33 04:15 WBC 13.8 H D RBC 3.29 L Hgb 10.0 L Hct 29.5 L MCV 89.7 MCH 30.5 MCHC 34.0 RDW 14.6 H Plt Count 129 L D MPV 10.5 Neut % (Auto) 88.0 H Lymph % (Auto) 6.6 L Levy % (Auto) 5.1 Eos % (Auto) 0.1 Baso % (Auto) 0.2 Neut # 12.1 H Lymph # 0.9 L Levy # 0.7 Eos # 0.0 Baso # 0.0 Sodium Potassium Chloride Carbon Dioxide Anion Gap BUN Creatinine Est GFR ( Amer) Est GFR (Non-Af Amer) POC Glucose (mg/dL) 97 Random Glucose Calcium Total Bilirubin AST ALT Alkaline Phosphatase CK-MB (Mass) Total Protein Albumin Globulin Albumin/Globulin Ratio C. difficile Ag & Toxin Negative 01/29/17 04:15 WBC RBC Hgb Hct MCV MCH MCHC RDW Plt Count MPV Neut % (Auto) Lymph % (Auto) Levy % (Auto) Eos % (Auto) Baso % (Auto) Neut # Lymph # Levy # Eos # Baso # Sodium 140 Potassium 4.4 Chloride 108 H Carbon Dioxide 23 Anion Gap 13 BUN 35 H Creatinine 1.3 H Est GFR ( Amer) 47 Est GFR (Non-Af Amer) 39 POC Glucose (mg/dL) Random Glucose 114 H Calcium 8.1 L Total Bilirubin 0.4 AST 31 ALT 30 Alkaline Phosphatase 115 CK-MB (Mass) 8.78 H Total Protein 6.1 L Albumin 2.9 L D Globulin 3.1 Albumin/Globulin Ratio 0.9 L C. difficile Ag & Toxin Assessment & Plan - Assessment and Plan (Free Text) Assessment: Sepsis?? ABX Tamiflu Cultures ID Afib with controlled rate Hx CAD Cardiology NIDDM monitor BS - Date & Time Date: 01/29/17 Time: 22:22
[2017-01-30] MEDS: Levothyroxine 25 MCG TAB PO SCH (06:23)
[2017-01-30 08:10] LABS: HEMATOCRIT 29.1 % (34.0-47.0); MEAN CELL VOLUME 88.9 fl (81.0-99.0); MEAN CORPUSCULAR HEMOGLOBIN 30.6 pg (27.0-31.0); MEAN CORPUSCULAR HGB CONC 34.5 g/dL (33.0-37.0); RED CELL DISTRIBUTION WIDTH 14.6 % (11.5-14.5); WHITE BLOOD COUNT 7.7 K/uL (4.8-10.8)
[2017-01-30 08:15] LABS: CALCIUM 7.9 mg/dL (8.4-10.2); POTASSIUM 4.2 MMOL/L (3.6-5.0)
--- NOTE | 2017-01-30 13:11 | CP.PCM.PN ---
Subjective - Date & Time of Evaluation Date of Evaluation: 01/30/17 Time of Evaluation: 09:00 - Subjective Subjective: BLOOD C/S GROWING GRAM NEG RODS UNLIKELY TO BE CONTAMINANT REMAINS COMFORTABLE/ AFEBRILE AWAKE AND ALERT DENIES FEVER , CHILLS OR ABD PAIN IV ANTBIOTICS RENEWED MAY NEED ECHO/MARLENE AND CT ABD / PELVIS Objective - Vital Signs/Intake and Output Vital Signs (last 24 hours): Temp Pulse Resp BP Pulse Ox 98.2 F 62 18 102/49 L 98 01/30/17 12:19 01/30/17 12:19 01/30/17 12:19 01/30/17 12:19 01/30/17 12:19 - Medications Medications: Current Medications Amiodarone HCl (Cordarone) 100 mg PO QOTHERDAY [facility] Last Admin: 01/29/17 09:50 Dose: 100 mg Atorvastatin Calcium (Lipitor) 40 mg PO DAILY [facility] Last Admin: 01/30/17 08:58 Dose: 40 mg Clopidogrel Bisulfate (Plavix) 75 mg PO DAILY [facility] Last Admin: 01/30/17 08:59 Dose: 75 mg Vancomycin HCl 1 gm/ Sodium (Chloride) 250 mls @ 166.667 mls/hr IVPB DAILY [facility] PRN Reason: Protocol Last Admin: 01/30/17 09:04 Dose: 166.667 mls/hr Ceftriaxone Sodium 1 gm/ (Sodium Chloride) 100 mls @ 100 mls/hr IVPB DAILY [facility] PRN Reason: Protocol Last Admin: 01/30/17 09:03 Dose: 100 mls/hr Isosorbide Mononitrate (Imdur Er) 30 mg PO DAILY [facility] Last Admin: 01/30/17 09:00 Dose: 30 mg Levothyroxine Sodium (Synthroid) 25 mcg PO DAILY@0630 [facility] Last Admin: 01/30/17 06:23 Dose: 25 mcg Metoprolol Tartrate (Lopressor) 12.5 mg PO Q12 [facility] Last Admin: 01/30/17 08:58 Dose: 12.5 mg Oseltamivir Phosphate (Tamiflu Cap) 75 mg PO BID [facility] PRN Reason: Protocol Last Admin: 01/30/17 09:00 Dose: 75 mg Pioglitazone HCl (Actos) 15 mg PO DAILY [facility] Last Admin: 01/30/17 08:59 Dose: 15 mg - Labs Labs: 01/30/17 08:00 01/30/17 08:00 PT 14.6 Seconds (9.8-13.1) H 01/28/17 15:38 INR 1.3 (0.9-1.2) H 01/28/17 15:38 APTT 32.1 Seconds (25.6-37.1) 01/28/17 15:38 - Constitutional Appears: Non-toxic, Chronically Ill - Head Exam Head Exam: NORMOCEPHALIC - Eye Exam Eye Exam: PERRL - ENT Exam ENT Exam: Mucous Membranes Dry - Neck Exam Neck Exam: absent: Lymphadenopathy - Respiratory Exam Respiratory Exam: Decreased Breath Sounds - Cardiovascular Exam Cardiovascular Exam: REGULAR RHYTHM - GI/Abdominal Exam GI & Abdominal Exam: Distended - Rectal Exam Rectal Exam: Deferred - Exam Exam: NORMAL INSPECTION - Extremities Exam Extremities Exam: absent: Pedal Edema - Back Exam Back Exam: absent: CVA tenderness (L), CVA tenderness (R) - Neurological Exam Neurological Exam: Alert, Awake, Oriented x3 - Psychiatric Exam Psychiatric exam: Normal Mood - Skin Skin Exam: Dry Assessment and Plan (1) Leukocytosis (leucocytosis) Status: Acute (2) Febrile Status: Acute (3) Atrial fibrillation with rapid ventricular response Status: Acute (4) Chest pain Status: Acute - Assessment and Plan (Free Text) Assessment: BLOOD C/S GROWING GRAM NEG RODS UNLIKELY TO BE CONTAMINANT REMAINS COMFORTABLE/ AFEBRILE AWAKE AND ALERT DENIES FEVER , CHILLS OR ABD PAIN IV ANTBIOTICS RENEWED MAY NEED ECHO/MARLENE AND CT ABD / PELVIS
--- NOTE | 2017-01-30 18:33 | CP.PCM.PN ---
Subjective - Date & Time of Evaluation Date of Evaluation: 01/30/17 Time of Evaluation: 22:22 - Subjective Subjective: Blood cultures gram neg rods Objective - Vital Signs/Intake and Output Vital Signs (last 24 hours): Temp Pulse Resp BP Pulse Ox 98.4 F 65 20 119/68 96 01/30/17 15:57 01/30/17 15:57 01/30/17 15:57 01/30/17 15:57 01/30/17 15:57 - Medications Medications: Current Medications Amiodarone HCl (Cordarone) 100 mg PO QOTHERDAY [facility] Last Admin: 01/29/17 09:50 Dose: 100 mg Atorvastatin Calcium (Lipitor) 40 mg PO DAILY [facility] Last Admin: 01/30/17 08:58 Dose: 40 mg Clopidogrel Bisulfate (Plavix) 75 mg PO DAILY [facility] Last Admin: 01/30/17 08:59 Dose: 75 mg Vancomycin HCl 1 gm/ Sodium (Chloride) 250 mls @ 166.667 mls/hr IVPB DAILY [facility] PRN Reason: Protocol Last Admin: 01/30/17 09:04 Dose: 166.667 mls/hr Ceftriaxone Sodium 1 gm/ (Sodium Chloride) 100 mls @ 100 mls/hr IVPB DAILY [facility] PRN Reason: Protocol Last Admin: 01/30/17 09:03 Dose: 100 mls/hr Isosorbide Mononitrate (Imdur Er) 30 mg PO DAILY [facility] Last Admin: 01/30/17 09:00 Dose: 30 mg Levothyroxine Sodium (Synthroid) 25 mcg PO DAILY@0630 [facility] Last Admin: 01/30/17 06:23 Dose: 25 mcg Metoprolol Tartrate (Lopressor) 12.5 mg PO Q12 [facility] Last Admin: 01/30/17 08:58 Dose: 12.5 mg Oseltamivir Phosphate (Tamiflu Cap) 75 mg PO BID [facility] PRN Reason: Protocol Last Admin: 01/30/17 17:10 Dose: 75 mg Pioglitazone HCl (Actos) 15 mg PO DAILY [facility] Last Admin: 01/30/17 08:59 Dose: 15 mg - Labs Labs: 01/30/17 08:00 01/30/17 08:00 PT 14.6 Seconds (9.8-13.1) H 01/28/17 15:38 INR 1.3 (0.9-1.2) H 01/28/17 15:38 APTT 32.1 Seconds (25.6-37.1) 01/28/17 15:38 - Respiratory Exam Respiratory Exam: NORMAL BREATHING PATTERN - Cardiovascular Exam Cardiovascular Exam: REGULAR RHYTHM - GI/Abdominal Exam GI & Abdominal Exam: Normal Bowel Sounds Assessment and Plan - Assessment and Plan (Free Text) Assessment: Sepsis?? Blood cultures gram neg rods Urine CS no growth- done after ABX started ABX Tamiflu repeat Cultures ID Afib with controlled rate Hx CAD Cardiology NIDDM monitor BS
[2017-01-31] MEDS: Levothyroxine 25 MCG TAB PO SCH (06:07)
--- NOTE | 2017-01-31 12:40 | CP.PCM.CON ---
History of Present Illness - History of Present Illness History of Present Illness: 86 yo female admitted with fever of 104 , gram negative sepsis (pseudomonas aeriginosa), good response to antibiotics. Normal Sinus Rhythm. No vegitations detected by echocardiography. Pt alert and verbal without complaints. Past Patient History - Infectious Disease Hx of Infectious Diseases: None - Past Medical History & Family History Past Medical History?: Yes - Past Social History Smoking Status: Never Smoked - CARDIAC Hx Hypercholesterolemia: Yes Hx Hypertension: Yes - PULMONARY Hx Respiratory Disorders: No - NEUROLOGICAL Hx Neurological Disorder: No - HEENT Hx HEENT Problems: No - RENAL Hx Chronic Kidney Disease: No - ENDOCRINE/METABOLIC Hx Diabetes Mellitus Type 2: Yes Hx Hypothyroidism: Yes - HEMATOLOGICAL/ONCOLOGICAL Hx Blood Disorders: No - INTEGUMENTARY Hx Dermatological Problems: No - MUSCULOSKELETAL/RHEUMATOLOGICAL Hx Musculoskeletal Disorders: No Hx Falls: No - GASTROINTESTINAL Hx Gastrointestinal Disorders: No - GENITOURINARY/GYNECOLOGICAL Hx Genitourinary Disorders: No - PSYCHIATRIC Hx Psychophysiologic Disorder: No Hx Substance Use: No - SURGICAL HISTORY Hx Surgeries: No - ANESTHESIA Hx Anesthesia: No Meds Allergies/Adverse Reactions: Allergies Allergy/AdvReac Type Severity Reaction Status Date / Time No Known Allergies Allergy Verified 02/09/16 09:21 - Medications Medications: Current Medications Amiodarone HCl (Cordarone) 100 mg PO QOTHERDAY [facility] Last Admin: 01/31/17 09:18 Dose: 100 mg Atorvastatin Calcium (Lipitor) 40 mg PO DAILY [facility] Last Admin: 01/31/17 09:18 Dose: 40 mg Clopidogrel Bisulfate (Plavix) 75 mg PO DAILY [facility] Last Admin: 01/31/17 09:17 Dose: 75 mg Vancomycin HCl 1 gm/ Sodium (Chloride) 250 mls @ 166.667 mls/hr IVPB DAILY [facility] PRN Reason: Protocol Last Admin: 01/31/17 11:36 Dose: 166.667 mls/hr Ceftriaxone Sodium 1 gm/ (Sodium Chloride) 100 mls @ 100 mls/hr IVPB DAILY [facility] PRN Reason: Protocol Last Admin: 01/31/17 09:19 Dose: 100 mls/hr Isosorbide Mononitrate (Imdur Er) 30 mg PO DAILY [facility] Last Admin: 01/31/17 09:18 Dose: 30 mg Levothyroxine Sodium (Synthroid) 25 mcg PO DAILY@0630 [facility] Last Admin: 01/31/17 06:07 Dose: 25 mcg Metoprolol Tartrate (Lopressor) 12.5 mg PO Q12 [facility] Last Admin: 01/31/17 09:17 Dose: 12.5 mg Oseltamivir Phosphate (Tamiflu Cap) 75 mg PO BID [facility] PRN Reason: Protocol Last Admin: 01/31/17 09:19 Dose: 75 mg Pioglitazone HCl (Actos) 15 mg PO DAILY [facility] Last Admin: 01/31/17 09:08 Dose: 15 mg Physical Exam - Head Exam Head Exam: NORMAL INSPECTION - Neck Exam Neck exam: Positive for: Normal Inspection - Respiratory Exam Respiratory Exam: Clear to Auscultation Bilateral - Cardiovascular Exam Cardiovascular Exam: REGULAR RHYTHM - GI/Abdominal Exam GI & Abdominal Exam: Normal Bowel Sounds - Extremities Exam Extremities exam: Positive for: normal inspection Results - Vital Signs Recent Vital Signs: Last Vital Signs Temp 98.2 F 01/31/17 12:00 Pulse 56 L 01/31/17 12:00 Resp 18 01/31/17 12:00 BP 126/66 01/31/17 12:00 Pulse Ox 96 01/31/17 12:00 - Labs Result Diagrams: 01/30/17 08:00 01/30/17 08:00 Labs: Laboratory Results - last 24 hr 01/30/17 01/31/17 17:22 07:00 CK-MB (Mass) 2.23 Stool Occult Blood Negative Assessment & Plan - Assessment and Plan (Free Text) Assessment: Continue antibiotics Tailor regimen as per ID Hemodynamically stable
[2017-01-31 18:08] LABS: FOLATE 6.4 ng/mL
--- NOTE | 2017-01-31 20:22 | CP.PCM.PN ---
Subjective - Date & Time of Evaluation Date of Evaluation: 01/31/17 Time of Evaluation: 22:22 - Subjective Subjective: Bloood cs Pseudomonas Objective - Vital Signs/Intake and Output Vital Signs (last 24 hours): Temp Pulse Resp BP Pulse Ox 98.7 F 70 20 134/68 97 01/31/17 19:21 01/31/17 19:21 01/31/17 19:21 01/31/17 19:21 01/31/17 19:21 Intake and Output: 01/31/17 02/01/17 18:59 06:59 Intake Total 1200 Balance 1200 - Medications Medications: Current Medications Amiodarone HCl (Cordarone) 100 mg PO QOTHERDAY [facility] Last Admin: 01/31/17 09:18 Dose: 100 mg Atorvastatin Calcium (Lipitor) 40 mg PO DAILY [facility] Last Admin: 01/31/17 09:18 Dose: 40 mg Clopidogrel Bisulfate (Plavix) 75 mg PO DAILY [facility] Last Admin: 01/31/17 09:17 Dose: 75 mg Vancomycin HCl 1 gm/ Sodium (Chloride) 250 mls @ 166.667 mls/hr IVPB DAILY [facility] PRN Reason: Protocol Last Admin: 01/31/17 11:36 Dose: 166.667 mls/hr Cefepime HCl 1 gm/ Sodium (Chloride) 100 mls @ 100 mls/hr IVPB Q12 [facility] PRN Reason: Protocol Isosorbide Mononitrate (Imdur Er) 30 mg PO DAILY [facility] Last Admin: 01/31/17 09:18 Dose: 30 mg Levothyroxine Sodium (Synthroid) 25 mcg PO DAILY@0630 [facility] Last Admin: 01/31/17 06:07 Dose: 25 mcg Metoprolol Tartrate (Lopressor) 12.5 mg PO Q12 [facility] Last Admin: 01/31/17 09:17 Dose: 12.5 mg Oseltamivir Phosphate (Tamiflu Cap) 75 mg PO BID [facility] PRN Reason: Protocol Last Admin: 01/31/17 17:17 Dose: 75 mg Pioglitazone HCl (Actos) 15 mg PO DAILY [facility] Last Admin: 01/31/17 09:08 Dose: 15 mg - Labs Labs: 01/30/17 08:00 01/30/17 08:00 PT 14.6 Seconds (9.8-13.1) H 01/28/17 15:38 INR 1.3 (0.9-1.2) H 01/28/17 15:38 APTT 32.1 Seconds (25.6-37.1) 01/28/17 15:38 - Respiratory Exam Respiratory Exam: NORMAL BREATHING PATTERN - Cardiovascular Exam Cardiovascular Exam: REGULAR RHYTHM - GI/Abdominal Exam GI & Abdominal Exam: Normal Bowel Sounds Assessment and Plan - Assessment and Plan (Free Text) Assessment: Sepsis?? Blood cultures Pseudomonas Urine CS no growth- done after ABX started ABX adjusteed Tamiflu As per ID Afib with controlled rate Hx CAD Cardiology NIDDM monitor BS Elevated creat Nephrology consult
[2017-01-31] MEDS: Cefepime 1 GM in Sodium Chloride 0.9% 100 ML IVPB SCH (21:20)
[2017-02-01] MEDS: Levothyroxine 25 MCG TAB PO SCH (06:49)
[2017-02-01] MEDS: Cefepime 1 GM in Sodium Chloride 0.9% 100 ML IVPB SCH ×2 (09:18→21:54)
--- NOTE | 2017-02-01 14:17 | CP.PCM.PN ---
Subjective - Date & Time of Evaluation Date of Evaluation: 02/01/17 Time of Evaluation: 09:00 - Subjective Subjective: blood c/s + Pseudomonas source unclear consider CT Abd / Pelvis Objective - Vital Signs/Intake and Output Vital Signs (last 24 hours): Temp Pulse Resp BP Pulse Ox 98.5 F 55 L 18 138/70 95 02/01/17 12:44 02/01/17 12:44 02/01/17 12:44 02/01/17 12:44 02/01/17 12:44 Intake and Output: 02/01/17 02/01/17 06:59 18:59 Intake Total 200 Balance 200 - Medications Medications: Current Medications Amiodarone HCl (Cordarone) 100 mg PO QOTHERDAY [facility] Last Admin: 01/31/17 09:18 Dose: 100 mg Atorvastatin Calcium (Lipitor) 40 mg PO DAILY [facility] Last Admin: 02/01/17 09:19 Dose: 40 mg Clopidogrel Bisulfate (Plavix) 75 mg PO DAILY [facility] Last Admin: 02/01/17 09:18 Dose: 75 mg Vancomycin HCl 1 gm/ Sodium (Chloride) 250 mls @ 166.667 mls/hr IVPB DAILY [facility] PRN Reason: Protocol Last Admin: 01/31/17 11:36 Dose: 166.667 mls/hr Cefepime HCl 1 gm/ Sodium (Chloride) 100 mls @ 100 mls/hr IVPB Q12 [facility] PRN Reason: Protocol Last Admin: 02/01/17 09:18 Dose: 100 mls/hr Isosorbide Mononitrate (Imdur Er) 30 mg PO DAILY [facility] Last Admin: 02/01/17 09:19 Dose: 30 mg Levothyroxine Sodium (Synthroid) 25 mcg PO DAILY@0630 [facility] Last Admin: 02/01/17 06:49 Dose: 25 mcg Metoprolol Tartrate (Lopressor) 12.5 mg PO Q12 [facility] Last Admin: 02/01/17 09:23 Dose: 12.5 mg Oseltamivir Phosphate (Tamiflu Cap) 75 mg PO BID [facility] PRN Reason: Protocol Last Admin: 02/01/17 09:17 Dose: 75 mg Pioglitazone HCl (Actos) 15 mg PO DAILY [facility] Last Admin: 02/01/17 09:18 Dose: 15 mg - Labs Labs: 01/30/17 08:00 01/30/17 08:00 PT 14.6 Seconds (9.8-13.1) H 01/28/17 15:38 INR 1.3 (0.9-1.2) H 01/28/17 15:38 APTT 32.1 Seconds (25.6-37.1) 01/28/17 15:38 - Constitutional Appears: Non-toxic, Chronically Ill - Head Exam Head Exam: NORMOCEPHALIC - Eye Exam Eye Exam: PERRL - ENT Exam ENT Exam: Mucous Membranes Dry - Neck Exam Neck Exam: absent: Lymphadenopathy - Respiratory Exam Respiratory Exam: Decreased Breath Sounds, Rhonchi - Cardiovascular Exam Cardiovascular Exam: REGULAR RHYTHM, +S1, +S2 - GI/Abdominal Exam GI & Abdominal Exam: Distended - Rectal Exam Rectal Exam: Deferred - Exam Exam: NORMAL INSPECTION - Extremities Exam Extremities Exam: absent: Pedal Edema - Back Exam Back Exam: absent: CVA tenderness (L), CVA tenderness (R) - Neurological Exam Neurological Exam: Alert, Awake - Psychiatric Exam Psychiatric exam: Normal Mood Assessment and Plan (1) Leukocytosis (leucocytosis) Status: Acute (2) Febrile Status: Acute (3) Atrial fibrillation with rapid ventricular response Status: Acute (4) Chest pain Status: Acute - Assessment and Plan (Free Text) Assessment: cont iv rx consider ct abd pelvis
--- NOTE | 2017-02-01 17:56 | CP.PCM.PN ---
Subjective - Date & Time of Evaluation Date of Evaluation: 02/01/17 Time of Evaluation: 22:22 - Subjective Subjective: Above noted Objective - Vital Signs/Intake and Output Vital Signs (last 24 hours): Temp Pulse Resp BP Pulse Ox 97.8 F 60 20 138/67 95 02/01/17 16:04 02/01/17 16:04 02/01/17 16:04 02/01/17 16:04 02/01/17 16:04 Intake and Output: 02/01/17 02/01/17 06:59 18:59 Intake Total 200 Balance 200 - Medications Medications: Current Medications Amiodarone HCl (Cordarone) 100 mg PO QOTHERDAY [facility] Last Admin: 01/31/17 09:18 Dose: 100 mg Atorvastatin Calcium (Lipitor) 40 mg PO DAILY [facility] Last Admin: 02/01/17 09:19 Dose: 40 mg Clopidogrel Bisulfate (Plavix) 75 mg PO DAILY [facility] Last Admin: 02/01/17 09:18 Dose: 75 mg Vancomycin HCl 1 gm/ Sodium (Chloride) 250 mls @ 166.667 mls/hr IVPB DAILY [facility] PRN Reason: Protocol Last Admin: 02/01/17 12:00 Dose: 166.667 mls/hr Cefepime HCl 1 gm/ Sodium (Chloride) 100 mls @ 100 mls/hr IVPB Q12 [facility] PRN Reason: Protocol Last Admin: 02/01/17 09:18 Dose: 100 mls/hr Isosorbide Mononitrate (Imdur Er) 30 mg PO DAILY [facility] Last Admin: 02/01/17 09:19 Dose: 30 mg Levothyroxine Sodium (Synthroid) 25 mcg PO DAILY@0630 [facility] Last Admin: 02/01/17 06:49 Dose: 25 mcg Metoprolol Tartrate (Lopressor) 12.5 mg PO Q12 [facility] Last Admin: 02/01/17 09:23 Dose: 12.5 mg Oseltamivir Phosphate (Tamiflu Cap) 75 mg PO BID [facility] PRN Reason: Protocol Last Admin: 02/01/17 17:48 Dose: 75 mg Pioglitazone HCl (Actos) 15 mg PO DAILY [facility] Last Admin: 02/01/17 09:18 Dose: 15 mg - Labs Labs: 01/30/17 08:00 01/30/17 08:00 PT 14.6 Seconds (9.8-13.1) H 01/28/17 15:38 INR 1.3 (0.9-1.2) H 01/28/17 15:38 APTT 32.1 Seconds (25.6-37.1) 01/28/17 15:38 - Respiratory Exam Respiratory Exam: NORMAL BREATHING PATTERN - Cardiovascular Exam Cardiovascular Exam: REGULAR RHYTHM - GI/Abdominal Exam GI & Abdominal Exam: Normal Bowel Sounds Assessment and Plan - Assessment and Plan (Free Text) Assessment: Sepsis?? Blood cultures Pseudomonas Source?? Urine CS no growth- done after ABX started ABX adjusteed As per ID Afib with controlled rate Hx CAD Cardiology NIDDM monitor BS Diabetic Nephropathy Nephrology consult
[2017-02-01 20:16] LABS: CALCIUM 8.1 mg/dL (8.4-10.2); POTASSIUM 4.3 MMOL/L (3.6-5.0)
[2017-02-02] MEDS: Levothyroxine 25 MCG TAB PO SCH (06:25)
[2017-02-02] MEDS: Cefepime 1 GM in Sodium Chloride 0.9% 100 ML IVPB SCH ×2 (09:38→21:39)
--- NOTE | 2017-02-02 10:45 | CP.PCM.CON ---
History of Present Illness - History of Present Illness History of Present Illness: RENAL CONSULT NOTE HPI: 86 yo lady with PMHx of CAD, DM, dyslipidemia is admitted with fever, chills she is being treated for pseudomonas sepsis. i have been consulted for zaid. The son is present bedside, denies any hx of ckd. no edema or urinary complaints. PMedHx: [place] in 2015; Afib; DM; dyslipidemia; hypothyroidism FamHx: Mother DM; Father: IDDM SocialHx: Lives with son; Denies: smoking, etoh, illicit drugs PE: elderly female sitting in bed heent normal op moist s1s2 present no resp distress abd soft no edema ao times 3 flat affect A&P: Zaid/CKD?/sepsis syndrome/dm/htn/cad cr is imprved today zaid likely sec to prerenal from normotensive sepsis induced atn non oliguric UA is bland There may be a component of underlying mild ckd frm DM nephropathy monitor I&Os lytes reviewed dose meds fro gfr abx per ID please call us if any qs [phone] Past Patient History - Infectious Disease Hx of Infectious Diseases: None - Past Medical History & Family History Past Medical History?: Yes - Past Social History Smoking Status: Never Smoked - CARDIAC Hx Hypercholesterolemia: Yes Hx Hypertension: Yes - PULMONARY Hx Respiratory Disorders: No - NEUROLOGICAL Hx Neurological Disorder: No - HEENT Hx HEENT Problems: No - RENAL Hx Chronic Kidney Disease: No - ENDOCRINE/METABOLIC Hx Diabetes Mellitus Type 2: Yes Hx Hypothyroidism: Yes - HEMATOLOGICAL/ONCOLOGICAL Hx Blood Disorders: No - INTEGUMENTARY Hx Dermatological Problems: No - MUSCULOSKELETAL/RHEUMATOLOGICAL Hx Musculoskeletal Disorders: No Hx Falls: No - GASTROINTESTINAL Hx Gastrointestinal Disorders: No - GENITOURINARY/GYNECOLOGICAL Hx Genitourinary Disorders: No - PSYCHIATRIC Hx Psychophysiologic Disorder: No Hx Substance Use: No - SURGICAL HISTORY Hx Surgeries: No - ANESTHESIA Hx Anesthesia: No Meds Allergies/Adverse Reactions: Allergies Allergy/AdvReac Type Severity Reaction Status Date / Time No Known Allergies Allergy Verified 02/09/16 09:21 - Medications Medications: Current Medications Amiodarone HCl (Cordarone) 100 mg PO [facility]OTHERDAY [facility] Last Admin: 02/02/17 09:44 Dose: 100 mg Atorvastatin Calcium (Lipitor) 40 mg PO DAILY [facility] Last Admin: 02/02/17 09:43 Dose: 40 mg Clopidogrel Bisulfate (Plavix) 75 mg PO DAILY [facility] Last Admin: 02/02/17 09:43 Dose: 75 mg Vancomycin HCl 1 gm/ Sodium (Chloride) 250 mls @ 166.667 mls/hr IVPB DAILY [facility] PRN Reason: Protocol Last Admin: 02/02/17 09:40 Dose: 166.667 mls/hr Cefepime HCl 1 gm/ Sodium (Chloride) 100 mls @ 100 mls/hr IVPB Q12 [facility] PRN Reason: Protocol Last Admin: 02/02/17 09:38 Dose: 100 mls/hr Isosorbide Mononitrate (Imdur Er) 30 mg PO DAILY [facility] Last Admin: 02/02/17 09:43 Dose: 30 mg Levothyroxine Sodium (Synthroid) 25 mcg PO DAILY@0630 [facility] Last Admin: 02/02/17 06:25 Dose: 25 mcg Metoprolol Tartrate (Lopressor) 12.5 mg PO Q12 [facility] Last Admin: 02/02/17 09:42 Dose: 12.5 mg Oseltamivir Phosphate (Tamiflu Cap) 75 mg PO BID [facility] PRN Reason: Protocol Last Admin: 02/02/17 09:42 Dose: 75 mg Pioglitazone HCl (Actos) 15 mg PO DAILY [facility] Last Admin: 02/02/17 09:45 Dose: 15 mg Results - Vital Signs Recent Vital Signs: Last Vital Signs Temp 98.2 F 02/02/17 08:00 Pulse 61 02/02/17 08:00 Resp 18 02/02/17 08:00 BP 148/72 02/02/17 09:42 Pulse Ox 95 02/02/17 08:00 - Labs Result Diagrams: 01/30/17 08:00 02/01/17 20:00 Labs: Laboratory Results - last 24 hr 02/01/17 20:00 Sodium 139 Potassium 4.3 Chloride 108 H Carbon Dioxide 25 Anion Gap 10 BUN 18 H Creatinine 1.1 Est GFR ( Amer) 57 Est GFR (Non-Af Amer) 47 Random Glucose 120 H Calcium 8.1 L
[2017-02-02 23:37] LABS: RBC URINE 3 /hpf (0-3); URINE BACTERIA RARE (<OCC); URINE BILIRUBIN NEGATIVE (NEGATIVE); URINE BLOOD NEGATIVE (NEGATIVE); URINE COLOR YELLOW (YELLOW); URINE GLUCOSE (UA) NEG (Normal); URINE KETONE NEGATIVE (NEGATIVE); URINE LEUKOCYTE ESTERASE NEG Leu/uL (Negative); URINE PROTEIN NEGATIVE (NEGATIVE); URINE UROBILINOGEN 0.2-1.0 mg/dL (0.2-1.0); WBC URINE 1 /hpf (0-5)
[2017-02-02 23:38] LABS: CREATININE, RANDOM URINE 52.8 mg/dL
--- NOTE | 2017-02-02 23:55 | CP.PCM.PN ---
Subjective - Date & Time of Evaluation Date of Evaluation: 02/02/17 Time of Evaluation: 22:22 - Subjective Subjective: Above noted Objective - Vital Signs/Intake and Output Vital Signs (last 24 hours): Temp Pulse Resp BP Pulse Ox 97.9 F 63 18 147/70 96 02/02/17 21:14 02/02/17 21:40 02/02/17 21:14 02/02/17 21:40 02/02/17 21:14 Intake and Output: 02/02/17 02/03/17 18:59 06:59 Intake Total 1250 Balance 1250 - Medications Medications: Current Medications Amiodarone HCl (Cordarone) 100 mg PO QOTHERDAY [facility] Last Admin: 02/02/17 09:44 Dose: 100 mg Atorvastatin Calcium (Lipitor) 40 mg PO DAILY [facility] Last Admin: 02/02/17 09:43 Dose: 40 mg Clopidogrel Bisulfate (Plavix) 75 mg PO DAILY [facility] Last Admin: 02/02/17 09:43 Dose: 75 mg Vancomycin HCl 1 gm/ Sodium (Chloride) 250 mls @ 166.667 mls/hr IVPB DAILY [facility] PRN Reason: Protocol Last Admin: 02/02/17 09:40 Dose: 166.667 mls/hr Cefepime HCl 1 gm/ Sodium (Chloride) 100 mls @ 100 mls/hr IVPB Q12 [facility] PRN Reason: Protocol Last Admin: 02/02/17 21:39 Dose: 100 mls/hr Isosorbide Mononitrate (Imdur Er) 30 mg PO DAILY [facility] Last Admin: 02/02/17 09:43 Dose: 30 mg Levothyroxine Sodium (Synthroid) 25 mcg PO DAILY@0630 [facility] Last Admin: 02/02/17 06:25 Dose: 25 mcg Metoprolol Tartrate (Lopressor) 12.5 mg PO Q12 [facility] Last Admin: 02/02/17 21:40 Dose: 12.5 mg Oseltamivir Phosphate (Tamiflu Cap) 75 mg PO BID [facility] PRN Reason: Protocol Last Admin: 02/02/17 17:07 Dose: 75 mg Pioglitazone HCl (Actos) 15 mg PO DAILY [facility] Last Admin: 02/02/17 09:45 Dose: 15 mg - Labs Labs: 01/30/17 08:00 02/01/17 20:00 PT 14.6 Seconds (9.8-13.1) H 01/28/17 15:38 INR 1.3 (0.9-1.2) H 01/28/17 15:38 APTT 32.1 Seconds (25.6-37.1) 01/28/17 15:38 - Respiratory Exam Respiratory Exam: NORMAL BREATHING PATTERN - Cardiovascular Exam Cardiovascular Exam: REGULAR RHYTHM - GI/Abdominal Exam GI & Abdominal Exam: Normal Bowel Sounds Assessment and Plan - Assessment and Plan (Free Text) Assessment: Sepsis?? Blood cultures Pseudomonas Source?? Urine CS no growth- done after ABX started ABX adjusteed As per ID Diabetic Nephropathy Nephrology consult appreciated Afib with controlled rate Hx CAD Cardiology NIDDM monitor BS
[2017-02-03] MEDS: Levothyroxine 25 MCG TAB PO SCH (06:32)
[2017-02-03] MEDS: Cefepime 1 GM in Sodium Chloride 0.9% 100 ML IVPB SCH ×3 (09:21→21:36)
[2017-02-03 11:19] LABS: CALCIUM 8.5 mg/dL (8.4-10.2); POTASSIUM 4.5 MMOL/L (3.6-5.0)
--- NOTE | 2017-02-03 13:56 | CP.PCM.PN ---
Subjective - Date & Time of Evaluation Date of Evaluation: 02/03/17 Time of Evaluation: 08:00 - Subjective Subjective: AFEBRILE ALERT SON AT THE BEDSIDE Objective - Vital Signs/Intake and Output Vital Signs (last 24 hours): Temp Pulse Resp BP Pulse Ox 97.4 F L 60 18 138/62 98 02/03/17 12:47 02/03/17 12:47 02/03/17 12:47 02/03/17 12:47 02/03/17 12:47 - Medications Medications: Current Medications Amiodarone HCl (Cordarone) 100 mg PO [facility]OTHERDAY [facility] Last Admin: 02/02/17 09:44 Dose: 100 mg Atorvastatin Calcium (Lipitor) 40 mg PO DAILY [facility] Last Admin: 02/03/17 09:15 Dose: 40 mg Clopidogrel Bisulfate (Plavix) 75 mg PO DAILY [facility] Last Admin: 02/03/17 09:14 Dose: 75 mg Vancomycin HCl 1 gm/ Sodium (Chloride) 250 mls @ 166.667 mls/hr IVPB DAILY [facility] PRN Reason: Protocol Last Admin: 02/03/17 12:58 Dose: Not Given Cefepime HCl 1 gm/ Sodium (Chloride) 100 mls @ 100 mls/hr IVPB Q12 [facility] PRN Reason: Protocol Last Admin: 02/03/17 12:57 Dose: Not Given Isosorbide Mononitrate (Imdur Er) 30 mg PO DAILY [facility] Last Admin: 02/03/17 09:16 Dose: 30 mg Levothyroxine Sodium (Synthroid) 25 mcg PO DAILY@0630 [facility] Last Admin: 02/03/17 06:32 Dose: 25 mcg Metoprolol Tartrate (Lopressor) 12.5 mg PO Q12 [facility] Last Admin: 02/03/17 09:15 Dose: 12.5 mg Pioglitazone HCl (Actos) 15 mg PO DAILY [facility] Last Admin: 02/03/17 09:16 Dose: 15 mg - Labs Labs: 01/30/17 08:00 02/03/17 10:49 PT 14.6 Seconds (9.8-13.1) H 01/28/17 15:38 INR 1.3 (0.9-1.2) H 01/28/17 15:38 APTT 32.1 Seconds (25.6-37.1) 01/28/17 15:38 - Constitutional Appears: Non-toxic, Chronically Ill - Head Exam Head Exam: NORMOCEPHALIC - Eye Exam Eye Exam: PERRL. absent: Scleral icterus - ENT Exam ENT Exam: Mucous Membranes Dry, Normal External Ear Exam - Neck Exam Neck Exam: absent: Lymphadenopathy - Respiratory Exam Respiratory Exam: Decreased Breath Sounds, Clear to Ausculation Bilateral - Cardiovascular Exam Cardiovascular Exam: REGULAR RHYTHM - GI/Abdominal Exam GI & Abdominal Exam: Distended, Soft - Rectal Exam Rectal Exam: Deferred - Exam Exam: NORMAL INSPECTION - Extremities Exam Extremities Exam: absent: Calf Tenderness, Pedal Edema, Tenderness - Back Exam Back Exam: NORMAL INSPECTION. absent: CVA tenderness (L), CVA tenderness (R) - Neurological Exam Neurological Exam: Alert, Awake, Oriented x3 Assessment and Plan (1) Leukocytosis (leucocytosis) Status: Acute (2) Febrile Status: Acute (3) Atrial fibrillation with rapid ventricular response Status: Acute (4) Chest pain Status: Acute (5) Pseudomonas aeruginosa infection Status: Acute - Assessment and Plan (Free Text) Assessment: STREP AND PSEUDOMONAS SEPSIS - SOURCE UNCLEAR CONSIDER CT ABD/PELVIS TO R/O OCCULT ABSCESS WILL NEED MIN 14 DAYS RX
[2017-02-04] MEDS: Levothyroxine 25 MCG TAB PO SCH (06:00)
[2017-02-04] MEDS ORDERED: Iohexol 240 (50 ml) PO ONE (09:14)
[2017-02-04] MEDS: Cefepime 1 GM in Sodium Chloride 0.9% 100 ML IVPB SCH ×2 (09:25→21:26)
--- NOTE | 2017-02-04 09:56 | CP.PCM.PN ---
Subjective - Date & Time of Evaluation Date of Evaluation: 02/04/17 Time of Evaluation: 09:53 - Subjective Subjective: Patient in bed awake and conscious very pleasant lady. Family member at the bedside. Vital signs stable. No nausea no vomiting eating well. No abdominal pain. Physical exam Chest no rales or rhonchi. Heart no rubs. Abdomen soft no rebound tenderness. Extremities no edema. Lab review Serum creatinine came down 1.1 Patient recovering from acute kidney injury. The final blood culture was negative however prior to that showed Pseudomonas and as per ID. Patient does not appear to be septic. Objective - Vital Signs/Intake and Output Vital Signs (last 24 hours): Temp Pulse Resp BP Pulse Ox 98.2 F 62 18 116/54 L 95 02/04/17 08:17 02/04/17 09:27 02/04/17 08:17 02/04/17 09:26 02/04/17 08:17 - Medications Medications: Current Medications Amiodarone HCl (Cordarone) 100 mg PO QOTHERDAY [facility] Last Admin: 02/04/17 09:27 Dose: 100 mg Atorvastatin Calcium (Lipitor) 40 mg PO DAILY [facility] Last Admin: 02/04/17 09:26 Dose: 40 mg Clopidogrel Bisulfate (Plavix) 75 mg PO DAILY [facility] Last Admin: 02/04/17 09:26 Dose: 75 mg Cefepime HCl 1 gm/ Sodium (Chloride) 100 mls @ 100 mls/hr IVPB Q12 [facility] PRN Reason: Protocol Last Admin: 02/04/17 09:25 Dose: 100 mls/hr Isosorbide Mononitrate (Imdur Er) 30 mg PO DAILY [facility] Last Admin: 02/04/17 09:26 Dose: 30 mg Levothyroxine Sodium (Synthroid) 25 mcg PO DAILY@0630 [facility] Last Admin: 02/04/17 06:00 Dose: 25 mcg Metoprolol Tartrate (Lopressor) 12.5 mg PO Q12 [facility] Last Admin: 02/04/17 09:26 Dose: 12.5 mg Pioglitazone HCl (Actos) 15 mg PO DAILY [facility] Last Admin: 02/04/17 09:26 Dose: 15 mg - Labs Labs: 01/30/17 08:00 02/03/17 10:49 PT 14.6 Seconds (9.8-13.1) H 01/28/17 15:38 INR 1.3 (0.9-1.2) H 01/28/17 15:38 APTT 32.1 Seconds (25.6-37.1) 01/28/17 15:38 Assessment and Plan (1) Leukocytosis (leucocytosis) Status: Acute
[2017-02-04 11:28] LABS: HEMATOCRIT 32.8 % (34.0-47.0); MEAN CELL VOLUME 88.9 fl (81.0-99.0); MEAN CORPUSCULAR HEMOGLOBIN 29.5 pg (27.0-31.0); MEAN CORPUSCULAR HGB CONC 33.2 g/dL (33.0-37.0); RED CELL DISTRIBUTION WIDTH 14.8 % (11.5-14.5)
[2017-02-04 11:40] LABS: CALCIUM 8.4 mg/dL (8.4-10.2); POTASSIUM 5.1 MMOL/L (3.6-5.0)
[2017-02-04] MEDS ORDERED: Lidocaine 1% Inj (20ml) ONE (13:17)
--- NOTE | 2017-02-04 13:20 | CP.PCM.PN ---
Subjective - Date & Time of Evaluation Date of Evaluation: 02/04/17 Time of Evaluation: 10:00 - Subjective Subjective: no fever cleared for CT scan no chest pain or cough Objective - Vital Signs/Intake and Output Vital Signs (last 24 hours): Temp Pulse Resp BP Pulse Ox 97.7 F 66 18 144/73 97 02/04/17 12:25 02/04/17 12:25 02/04/17 12:25 02/04/17 12:25 02/04/17 12:25 - Medications Medications: Current Medications Amiodarone HCl (Cordarone) 100 mg PO QOTHERDAY [facility] Last Admin: 02/04/17 09:27 Dose: 100 mg Atorvastatin Calcium (Lipitor) 40 mg PO DAILY [facility] Last Admin: 02/04/17 09:26 Dose: 40 mg Clopidogrel Bisulfate (Plavix) 75 mg PO DAILY [facility] Last Admin: 02/04/17 09:26 Dose: 75 mg Cefepime HCl 1 gm/ Sodium (Chloride) 100 mls @ 100 mls/hr IVPB Q12 [facility] PRN Reason: Protocol Last Admin: 02/04/17 09:25 Dose: 100 mls/hr Isosorbide Mononitrate (Imdur Er) 30 mg PO DAILY [facility] Last Admin: 02/04/17 09:26 Dose: 30 mg Levothyroxine Sodium (Synthroid) 25 mcg PO DAILY@0630 [facility] Last Admin: 02/04/17 06:00 Dose: 25 mcg Metoprolol Tartrate (Lopressor) 12.5 mg PO Q12 [facility] Last Admin: 02/04/17 09:26 Dose: 12.5 mg Pioglitazone HCl (Actos) 15 mg PO DAILY [facility] Last Admin: 02/04/17 09:26 Dose: 15 mg - Labs Labs: 02/04/17 11:10 02/04/17 11:10 PT 14.6 Seconds (9.8-13.1) H 01/28/17 15:38 INR 1.3 (0.9-1.2) H 01/28/17 15:38 APTT 32.1 Seconds (25.6-37.1) 01/28/17 15:38 - Constitutional Appears: Non-toxic - Head Exam Head Exam: NORMOCEPHALIC - Eye Exam Eye Exam: PERRL - ENT Exam ENT Exam: Mucous Membranes Dry - Neck Exam Neck Exam: absent: Lymphadenopathy - Respiratory Exam Respiratory Exam: Decreased Breath Sounds - Cardiovascular Exam Cardiovascular Exam: REGULAR RHYTHM - GI/Abdominal Exam GI & Abdominal Exam: Distended, Soft - Rectal Exam Rectal Exam: Deferred - Exam Exam: NORMAL INSPECTION - Extremities Exam Extremities Exam: absent: Pedal Edema - Back Exam Back Exam: absent: CVA tenderness (L), CVA tenderness (R) Assessment and Plan (1) Leukocytosis (leucocytosis) Status: Acute (2) Febrile Status: Acute (3) Atrial fibrillation with rapid ventricular response Status: Acute (4) Chest pain Status: Acute (5) Pseudomonas aeruginosa infection Status: Acute
--- NOTE | 2017-02-04 13:58 | PCM.SURG1 ---
Surgeon's Initial Post Op Note - Surgeon's Notes Surgeon: Alfredo Power MD Cardiology Clinical Consultant: None Type of Anesthesia: Local Pre-Operative Diagnosis: Febrile illness Operative Findings: patent right basilic vein. catheter length 41 cm. catheter tip at cavoatrial junction Post-Operative Diagnosis: same Operation Performed: RUE PICC Insertion Specimen/Specimens Removed: N/A Estimated Blood Loss: EBL {In ML}: 0 Post-Op Condition: Good Date of Surgery/Procedure: 02/04/17 Time of Surgery/Procedure: 13:45
[2017-02-04] MEDS ORDERED: Iodixanol 320 MG/ML 100 ML BOTTLE IV ONE (16:29)
[2017-02-04] MEDS ORDERED: Sodium Chloride 0.9% 50 ML IV ONE (16:29)
--- NOTE | 2017-02-04 17:01 | CP.PCM.PN ---
Subjective - Date & Time of Evaluation Date of Evaluation: 02/04/17 Time of Evaluation: 22:22 - Subjective Subjective: PICC line inserted Objective - Vital Signs/Intake and Output Vital Signs (last 24 hours): Temp Pulse Resp BP Pulse Ox 97.8 F 57 L 20 148/64 97 02/04/17 15:53 02/04/17 15:53 02/04/17 15:53 02/04/17 15:53 02/04/17 15:53 - Medications Medications: Current Medications Amiodarone HCl (Cordarone) 100 mg PO QOTHERDAY [facility] Last Admin: 02/04/17 09:27 Dose: 100 mg Atorvastatin Calcium (Lipitor) 40 mg PO DAILY [facility] Last Admin: 02/04/17 09:26 Dose: 40 mg Clopidogrel Bisulfate (Plavix) 75 mg PO DAILY [facility] Last Admin: 02/04/17 09:26 Dose: 75 mg Cefepime HCl 1 gm/ Sodium (Chloride) 100 mls @ 100 mls/hr IVPB Q12 [facility] PRN Reason: Protocol Last Admin: 02/04/17 09:25 Dose: 100 mls/hr Isosorbide Mononitrate (Imdur Er) 30 mg PO DAILY [facility] Last Admin: 02/04/17 09:26 Dose: 30 mg Levothyroxine Sodium (Synthroid) 25 mcg PO DAILY@0630 [facility] Last Admin: 02/04/17 06:00 Dose: 25 mcg Metoprolol Tartrate (Lopressor) 12.5 mg PO Q12 [facility] Last Admin: 02/04/17 09:26 Dose: 12.5 mg Pioglitazone HCl (Actos) 15 mg PO DAILY [facility] Last Admin: 02/04/17 09:26 Dose: 15 mg - Labs Labs: 02/04/17 11:10 02/04/17 11:10 PT 14.6 Seconds (9.8-13.1) H 01/28/17 15:38 INR 1.3 (0.9-1.2) H 01/28/17 15:38 APTT 32.1 Seconds (25.6-37.1) 01/28/17 15:38 - Respiratory Exam Respiratory Exam: NORMAL BREATHING PATTERN - Cardiovascular Exam Cardiovascular Exam: REGULAR RHYTHM - GI/Abdominal Exam GI & Abdominal Exam: Normal Bowel Sounds Assessment and Plan - Assessment and Plan (Free Text) Assessment: Sepsis?? Blood cultures Pseudomonas Source?? Urine CS no growth- done after ABX started ABX adjusted CT scan As per ID Diabetic Nephropathy Nephrology consult appreciated Afib with controlled rate Hx CAD Cardiology NIDDM monitor BS
--- NOTE | 2017-02-04 17:49 | CT ---
PROCEDURE: CT Abdomen and Pelvis with contrast HISTORY: Bacteremia with unknown source COMPARISON: None. TECHNIQUE: Contrast dose: 95 cc Visipaque 320 Radiation dose: Total exam DLP = 1010.12 mGy-cm. This CT exam was performed using one or more of the following dose reduction techniques: Automated exposure control, adjustment of the mA and/or kV according to patient size, and/or use of iterative reconstruction technique. FINDINGS: LOWER THORAX: Small bilateral pleural effusions. LIVER: Hepatic steatosis. No focal masses. No intrahepatic bile duct dilatation or perihepatic ascites. GALLBLADDER AND BILE DUCTS: Cholelithiasis without CT evidence of acute cholecystitis. PANCREAS: Unremarkable. No gross lesion or ductal dilatation. SPLEEN: Unremarkable. ADRENALS: Unremarkable. No mass. KIDNEYS AND URETERS: Unremarkable. No hydronephrosis. No solid mass. VASCULATURE: Unremarkable. No aortic aneurysm. BOWEL: Severe sigmoid diverticulosis without acute inflammatory component. Marked thickening of the wall of the sigmoid at the site of innumerable diverticulum. APPENDIX: No abnormalities to suggest acute appendicitis. No right lower quadrant inflammatory processes identified. PERITONEUM: Unremarkable. No free fluid. No free air. LYMPH NODES: Unremarkable. No enlarged lymph nodes. BLADDER: Unremarkable. REPRODUCTIVE: Unremarkable. BONES: No acute fracture. OTHER FINDINGS: None. IMPRESSION: No acute findings related to/accounting for the clinical presentation. Additional benign and/or incidental findings described above.
[2017-02-05] MEDS: Levothyroxine 25 MCG TAB PO SCH (06:02)
--- NOTE | 2017-02-05 07:36 | VASCULAR ---
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 COMPARISON: None. PROCEDURE: 1. Focused ultrasound of the right upper extremity vasculature. 2. Ultrasound-guided access. 3. Insertion of peripherally inserted central venous catheter. 4. Fluoroscopic localization of catheter tip. PRE-PROCEDURE FINDINGS: 1. Patent right basilic vein. POST-PROCEDURE FINDINGS: 1. Placement of 4 [place] single-lumen PICC. 2. Catheter length: 41 cm. 3. Catheter tip at cavoatrial junction. INTERVENTIONAL RADIOLOGIST: Aflredo Power M.D. (the attending was present for the entire procedure.) ANESTHESIA: None. MEDICATION: Lidocaine 1% for local subcutaneous analgesia. COMPLICATIONS: None. PROCEDURE DESCRIPTION AND FINDINGS: The risks, benefits, alternatives and possible complications of the procedure were fully discussed; all questions were answered and informed consent was obtained. The patient was brought into the interventional suite and a pre-procedure 'time-out' was performed. The patient was brought into the interventional suite and a pre-procedure 'time-out' was performed. The patient was placed on the fluoroscopy table in the supine position. The right upper extremity was prepped and draped in the usual sterile fashion. Maximum sterile barrier precautions were maintained throughout the entire procedure. Preliminary ultrasound images of the right upper extremity vasculature demonstrate patency of the right basilic vein. Following subcutaneous infiltration of 1% lidocaine for local analgesia, under ultrasound guidance, a 21-gauge needle was advanced into the right basilic vein with real-time visualization of needle entry. The ultrasound images were permanently recorded and submitted to the PACS. A 0.018 guidewire was advanced centrally to the cavoatrial junction. A 4.5 [place] peel-away sheath was advanced over the guidewire. After obtaining length measurement, a 4 [place] single-lumen PICC was placed with the tip of the catheter at the cavoatrial junction. The total length of the catheter is 41 cm. The hub of the PICC was secured to the skin using a sterile adhesive bandage. The patient tolerated the procedure well without immediate post-procedure complications and was transferred back to the floor in stable condition. IMPRESSION: SUCCESSFUL INSERTION OF RIGHT UPPER EXTREMITY PICC. PICC OK TO USE.
[2017-02-05 08:05] VITALS: RESP 18; TEMP 98.3; O2SAT 96
[2017-02-05] MEDS: Cefepime 1 GM in Sodium Chloride 0.9% 100 ML IVPB SCH (08:58)
--- NOTE | 2017-02-05 10:07 | CP.PCM.PN ---
Subjective - Date & Time of Evaluation Date of Evaluation: 02/05/17 Time of Evaluation: 10:04 - Subjective Subjective: pt. is comfortable. vital noted ok lab reviewed cret. normal k 5.1 to eye on and repeat P/E chest clear HT no rubs abd. soft ext. no edema A/P recovering from ESEQUIEL. chronic AF sepsis on ATBX s/p ct scan Objective - Vital Signs/Intake and Output Vital Signs (last 24 hours): Temp Pulse Resp BP Pulse Ox 98.3 F 60 18 145/80 96 02/05/17 08:00 02/05/17 08:56 02/05/17 08:00 02/05/17 08:56 02/05/17 08:00 - Medications Medications: Current Medications Amiodarone HCl (Cordarone) 100 mg PO QOTHERDAY [facility] Last Admin: 02/04/17 09:27 Dose: 100 mg Atorvastatin Calcium (Lipitor) 40 mg PO DAILY [facility] Last Admin: 02/05/17 08:57 Dose: 40 mg Clopidogrel Bisulfate (Plavix) 75 mg PO DAILY [facility] Last Admin: 02/05/17 08:57 Dose: 75 mg Cefepime HCl 1 gm/ Sodium (Chloride) 100 mls @ 100 mls/hr IVPB Q12 [facility] PRN Reason: Protocol Last Admin: 02/05/17 08:58 Dose: 100 mls/hr Isosorbide Mononitrate (Imdur Er) 30 mg PO DAILY [facility] Last Admin: 02/05/17 08:57 Dose: 30 mg Levothyroxine Sodium (Synthroid) 25 mcg PO DAILY@0630 [facility] Last Admin: 02/05/17 06:02 Dose: 25 mcg Metoprolol Tartrate (Lopressor) 12.5 mg PO Q12 [facility] Last Admin: 02/05/17 08:56 Dose: 12.5 mg Pioglitazone HCl (Actos) 15 mg PO DAILY [facility] Last Admin: 02/05/17 08:57 Dose: 15 mg - Labs Labs: 02/04/17 11:10 02/04/17 11:10 PT 14.6 Seconds (9.8-13.1) H 01/28/17 15:38 INR 1.3 (0.9-1.2) H 01/28/17 15:38 APTT 32.1 Seconds (25.6-37.1) 01/28/17 15:38 Assessment and Plan (1) Leukocytosis (leucocytosis) Status: Acute
[2017-02-05 12:13] VITALS: BP 131/66; PULSE 57
[2017-02-05 12:30] LABS: CALCIUM 8.6 mg/dL (8.4-10.2); POTASSIUM 4.6 MMOL/L (3.6-5.0)
--- NOTE | 2017-02-05 13:08 | CP.PCM.PCO ---
Assessment/Plan - Assessment/Plan Assessment (Free Text): iv antibiotics discussed with Dr britt for pseudomonas aureginosa in the blood , patient will need iv cefepime q12 for a total of 14 days. Shes receiving day today. - Problems Patient Problems: Problem List (Active/Current) Problem Status Onset Code Acute weakness Acute R53.1 Febrile Acute R50.9 Leukocytosis (leucocytosis) Acute D72.829 Pseudomonas aeruginosa infection Acute A49.8
--- NOTE | 2017-02-05 20:10 | CP.PCM.PN ---
Subjective - Date & Time of Evaluation Date of Evaluation: 02/05/17 Time of Evaluation: 22:22 - Subjective Subjective: Above noted Objective - Vital Signs/Intake and Output Vital Signs (last 24 hours): Temp Pulse Resp BP Pulse Ox 98.3 F 57 L 18 131/66 96 02/05/17 12:46 02/05/17 12:46 02/05/17 12:46 02/05/17 12:46 02/05/17 12:46 Intake and Output: 02/05/17 02/06/17 18:59 06:59 Intake Total 100 Balance 100 - Labs Labs: 02/04/17 11:10 02/05/17 10:47 PT 14.6 Seconds (9.8-13.1) H 01/28/17 15:38 INR 1.3 (0.9-1.2) H 01/28/17 15:38 APTT 32.1 Seconds (25.6-37.1) 01/28/17 15:38 - Respiratory Exam Respiratory Exam: NORMAL BREATHING PATTERN - Cardiovascular Exam Cardiovascular Exam: REGULAR RHYTHM - GI/Abdominal Exam GI & Abdominal Exam: Normal Bowel Sounds Assessment and Plan - Assessment and Plan (Free Text) Assessment: Sepsis?? Blood cultures Pseudomonas Source?? Urine CS no growth- done after ABX started ABX day #[address] scan negative As per ID Diabetic Nephropathy Nephrology consult appreciated Afib with controlled rate Hx CAD Cardiology NIDDM monitor BS
== END 2017-02-05 15:11 | disposition home or self-care (01) | DRG 871 ==
LOC: H.ER 14:22 → H.ERHOLD 18:11 → H.TEL 20:47
PROVIDERS: ADMIT Family Medicine Geriatric Medicine; ATTEND Family Medicine Geriatric Medicine
PROC: 3E0234Z Introduction of Serum, Toxoid and Vaccine into Muscle, Percutaneous Approach (ICD-10-PCS; principal; 2017-01-29)
PROC: 02HV33Z Insertion of Infusion Device into Superior Vena Cava, Percutaneous Approach (ICD-10-PCS; 2017-02-04)
DX: A41.52 Sepsis due to Pseudomonas (principal); N17.0 Acute kidney failure with tubular necrosis; A40.8 Other streptococcal sepsis; R65.20 Severe sepsis without septic shock; Z23 Encounter for immunization; E11.21 Type 2 diabetes mellitus with diabetic nephropathy; I25.10 Atherosclerotic heart disease of native coronary artery without angina pectoris; I25.2 Old myocardial infarction; E78.5 Hyperlipidemia, unspecified; E03.9 Hypothyroidism, unspecified; E78.00 Pure hypercholesterolemia, unspecified; I10 Essential (primary) hypertension; R07.9 Chest pain, unspecified; I48.2 Chronic atrial fibrillation